=== PATIENT | male | born 1945 | race Two or more races ===

== ENCOUNTER 2016-10-26 12:39 | Inpatient (IN) | payer MEDICARE, MEDICAID ==
--- NOTE | 2016-10-26 13:24 | ED Physician Chart ---
Chief Complaint/HPI - Patient Information Date Seen:: 10/26/16 Time Seen:: 13:22 Chief Complaint:: geripsych intake History of Present Illness:: [place] sent [facility] for [place]. He is planned for geripsy admission. no further hx given to me. pmh does nt mention prior psych hx. hx of asthma, o2 sat 95% on arrival. pt w no new complaints currently Allergies:: Allergies Allergy/AdvReac Type Severity Reaction Status Date / Time No Known Allergies Allergy Verified 10/26/16 13:09 Vitals:: Vital Signs - 8 hr 10/26/16 10/26/16 13:12 13:17 Temp 98.7 F HR 89 RR 19 BP 130/78 130/78 O2 Sat % 95 Historian:: Patient Review of Systems - Review of Systems General/Constitutional: No fever, No chills, No weight loss, No weakness, No diaphoresis, No edema, No loss of appetite Skin: No skin lesions, No rash, No bruising Head: No headache, No light-headedness Eyes: No loss of vision, No pain, No diplopia ENT: No earache, No nasal drainage, No sore throat, No tinnitus Neck: No neck pain, No swelling, No thyromegaly, No stiffness, No mass noted Cardio Vascular: No chest pain, No palpitations, No PND, No orthopnea, No edema Pulmonary: No SOB, No cough, No sputum, Wheezing GI: No nausea, No vomiting, No diarrhea, No pain, No melena, No hematochezia, No constipation, No hematemesis G/U: No dysuria, No frequency, No hematuria Musculoskeletal: No bone or joint pain, No back pain, No muscle pain Endocrine: No polyuria, No polydipsia Psychiatric: Prior psych history, No depression, No anxiety, No suicidal ideation, Other (agitation, difficult behavior) Hematopoietic: No bruising, No lymphadenopathy Allergic/Immuno: No urticaria, No angioedema Neurological: No syncope, No focal symptoms, No weakness, No paresthesia, No headache, No seizure, No dizziness, No confusion, No vertigo Past Medical History - Past Medical History Past Medical History: Asthma/COPD, Other ([place]) Social History: Care Facility Medication: Reviewed Family Medical History - Family Member Nephew History Unknown: Yes Ethnicity: Physical Exam - Physical Examination General/Constitutional: Awake, Well-developed, well-nourished, Alert, No distress, GCS 15, Non-toxic appearing, Ambulatory Other Gen/Cons comments:: mod obese male, talkative, in nad...currently calm. denies pain. mild TIMBI-SHA SHOSHONE. male pattern balding Head: Atraumatic Eyes: Lids, conjuctiva normal, PERRL, EOMI Skin: Nl inspection, No rash, No skin lesions, No ecchymosis, Well hydrated, No lymphadenopathy ENMT: External ears, nose nl, Nasal exam nl, Lips, teeth, gums nl Neck: Nontender, Full ROM w/o pain, No JVD, No nuchal rigidity, No bruit, No mass, No stridor Respiratory: Nl effort/Exclusion, Clear to Auscultation Other Respiratory comments:: pos mild diffuse wheeze. no sob. no lower extr edema Cardio Vascular: RRR, No murmur, gallop, rubs, NL S1 S2 GI: No tenderness/rebounding/guarding, No organomegaly, No hernia, Normal BS's, Nondistended, No mass/bruits, No McBurney tenderness : No CVA tenderness Extremities: No tenderness or effusion, Full ROM, normal strength in all extremities, No edema, Normal digits & nails Neuro/Psych: Alert/oriented, DTR's symmetric, Normal sensory exam, Normal motor strength, Judgement/insight normal, Mood normal, Normal gait, No focal deficits Misc: normal gait, Normal back, No paraspinal tenderness Labs/Radiology/EKG Results - Lab Results Results: Laboratory Tests 10/26/16 10/26/16 10/26/16 13:30 13:30 13:30 WBC 6.0 RBC 5.31 Hgb 10.1 L Hct 32.3 L MCV 60.7 L MCH 18.9 L MCHC Differential 31.2 RDW 21.5 H Plt Count 206 MPV 8.0 Band Neutrophils % 1 Neutrophils (Manual) 70 Lymphocytes 19 L Monocytes 6 Eosinophils 4 Platelet Estimate ADEQUATE Platelet Morphology NORMAL Anisocytosis 1+ Microcytosis 3+ RBC Morph Micro Appear ABNORMAL Sodium 135 L Potassium 4.2 Chloride 103 Carbon Dioxide 28.5 Anion Gap 7.7 BUN 15 Creatinine 0.7 Est GFR ( Amer) TNP Est GFR (Non-Af Amer) TNP BUN/Creatinine Ratio 21.4 Glucose 107 H Calcium 9.5 Total Bilirubin 0.4 AST 17 ALT 13 Alkaline Phosphatase 64 Total Protein 7.6 Albumin 4.0 L Globulin 3.6 Albumin/Globulin Ratio 1.1 Triglycerides 123 Cholesterol 100 LDL Cholesterol Direct 41 L HDL Cholesterol 33 Lipase 47 TSH Urine Source Urine Color Urine Clarity Urine pH Ur Specific [place] Urine Protein Urine Glucose (UA) Urine Ketones Urine Blood Urine Nitrate Urine Bilirubin Urine Urobilinogen Ur Leukocyte Esterase Urine RBC Urine WBC Ur Epithelial Cells Urine Bacteria 10/26/16 10/26/16 13:30 13:40 WBC RBC Hgb Hct MCV MCH MCHC Differential RDW Plt Count MPV Band Neutrophils % Neutrophils (Manual) Lymphocytes Monocytes Eosinophils Platelet Estimate Platelet Morphology Anisocytosis Microcytosis RBC Morph Micro Appear Sodium Potassium Chloride Carbon Dioxide Anion Gap BUN Creatinine Est GFR ( Amer) Est GFR (Non-Af Amer) BUN/Creatinine Ratio Glucose Calcium Total Bilirubin AST ALT Alkaline Phosphatase Total Protein Albumin Globulin Albumin/Globulin Ratio Triglycerides Cholesterol LDL Cholesterol Direct HDL Cholesterol Lipase TSH 0.79 Urine Source CLEAN C Urine Color YELLOW Urine Clarity SL. CLOUDY Urine pH 6.0 Ur Specific [place] Urine Protein TRACE Urine Glucose (UA) NEGATIVE Urine Ketones NEGATIVE Urine Blood NEGATIVE Urine Nitrate NEGATIVE Urine Bilirubin NEGATIVE Urine Urobilinogen 1.0 Ur Leukocyte Esterase NEGATIVE Urine RBC NONE SEEN Urine WBC 0-2 Ur Epithelial Cells OCCASIONAL Urine Bacteria NONE SEEN - Radiology Results Results: ct abd/p nad - EKG Interpretations EKG Time:: 13:25 Rhythm: nsr Taylor: 39 Rate: 88 Comments:: nsr wnl. ED Septic Shock - . Is Septic Shock (SBP<90, OR Lactate>4 mmol\L) present?: No - <6hrs of presentation: Vital Signs: Vital Signs - 8 hr 10/26/16 10/26/16 13:12 13:17 Temp 98.7 F HR 89 RR 19 BP 130/78 130/78 O2 Sat % 95 Reassessment (Disposition) - Reassessment Reassessment Condition:: Improved - Diagnosis Diagnosis:: agitation / difficult behavior asthma - Patient Disposition Condition at Disposition:: Improved
[2016-10-26] MEDS ORDERED: Albuterol/Ipratropium Neb 3 ML AERS HHN ONE ×2 (13:26→13:40)
[2016-10-26 13:42] LABS: HEMATOCRIT 32.3 % (39.0-49.0); HEMOGLOBIN 10.1 gm/dL (12.6-17.4); MEAN CORPUSCULAR HEMOGLOBIN 18.9 pg (27.0-31.0); MEAN CORPUSCULAR HGB CONC 31.2 pg (28.0-36.0); PLATELET COUNT 206 Th/cmm (150-400); RED BLOOD COUNT 5.31 Mil/cmm (3.80-5.80); RED CELL DISTRIBUTION WIDTH 21.5 % (11.5-20.0)
[2016-10-26 13:43] LABS: MEAN CELL VOLUME 60.7 fl (80-99)
[2016-10-26 13:53] LABS: CHOLESTEROL 100 mg/dL (<200); TRIGLYCERIDES 123 mg/dL (<150)
[2016-10-26 13:54] LABS: BAND NEUTROPHILE 1 % (0-10); EOSINOPHIL 4 % (0-5); NEUTROPHILS 70 % (40-80); TOTAL CELLS COUNTED 100
[2016-10-26 13:55] LABS: ANISOCYTOSIS 1+; MICROCYTOSIS 3+; PLATELET ESTIMATE ADEQUATE (NORMAL); PLATELET MORPHOLOGY NORMAL (NORMAL)
[2016-10-26 13:58] LABS: URINE BILIRUBIN NEGATIVE (NEGATIVE); URINE BLOOD NEGATIVE (NEGATIVE); URINE COLOR YELLOW; URINE GLUCOSE (UA) NEGATIVE (NEGATIVE); URINE KETONE NEGATIVE (NEGATIVE); URINE PROTEIN TRACE mg/dL (NEGATIVE)
[2016-10-26 14:01] LABS: URINE BACTERIA NONE SEEN /hpf (NONE SEEN); URINE EPITHELIAL CELLS OCCASIONAL /lpf (FEW); URINE RBC NONE SEEN /hpf (0-5); URINE WBC 0-2 /hpf (0-5)
[2016-10-26 14:08] LABS: ALB/GLOB RATIO 1.1 (1.0-1.8); ALKALINE PHOSPHATASE 64 U/L (34-104); ANION GAP 7.7 (7.0-16.0); BILIRUBIN,TOTAL 0.4 mg/dL (0.3-1.0); BUN - UREA NITROGEN 15 mg/dL (7-25); BUN/CREATININE RATIO 21.4; CALCIUM SERUM 9.5 mg/dL (8.6-10.3); CARBON DIOXIDE 28.5 mEq/L (21.0-31.0); CHLORIDE 103 mEq/L (98-107); CREATININE - SERUM 0.7 mg/dL (0.7-1.3); GLUCOSE 107 mg/dL (70-105); LIPASE 47 U/L (11-82); POTASSIUM SERUM 4.2 mEq/L (3.5-5.1); SGOT 17 U/L (13-39); SGPT/ALT 13 U/L (7-52); SODIUM SERUM 135 mEq/L (136-145)
--- NOTE | 2016-10-26 15:48 | Diagnostic Imaging Report ---
CHEST X-RAY: AP view INDICATION: Wheezing COMPARISON: None FINDINGS: Chronic lung changes are seen with no focal consolidation or effusions. Heart size is normal. Degenerative changes of the spine and shoulders are noted. IMPRESSION: Chronic lung changes with no focal consolidation identified.
[2016-10-26 17:46] VITALS: BP 99/58
[2016-10-26] MEDS ORDERED: RISPERIDONE 0.5 MG PO SCH (21:00)
--- NOTE | 2016-10-26 22:59 | Psychosocial Evaluation ---
IDENTIFYING DATA: The patient is a 71-year-old male, resident of [facility] in [place]. Information obtained by directly interviewing the patient as well as reviewing the admission papers. JUSTIFICATION FOR HOSPITALIZATION: The patient is admitted here on a voluntary basis in view of his acute agitation and paranoia behavior. CHIEF COMPLAINT: "I do not know." HISTORY OF PRESENT ILLNESS: This is a first psychiatric hospitalization to [facility] for this patient who is reported to have been out of control and getting easily irritable and agitated. The patient could not be continued at a lower level of care. The patient's sleep and appetite prior to the hospitalization are reported to be poor. The patient has been referred over here for further stabilization. Chart is reviewed. The patient is interviewed. During the interview, the patient has been noted to be angry, irritable, and upset, stating that there is no reason for him to be in here. The patient has been in his bed and he is not able to cooperate. Review of the chart indicated that prior to the hospitalization, the patient has been treated with Risperdal 0.5 mg in the morning and 2 mg at bedtime. The patient also has been getting the Cymbalta 30 mg in the morning and Namenda. The patient with these medications has been having still difficult time to contain his aggressive behavior. PAST PSYCHIATRIC HISTORY: Details are not known. MEDICAL HISTORY AND PHYSICAL EXAMINATION: Requested, done by Dr. Gonzalez. SUBSTANCE ABUSE HISTORY: None. PHYSICAL OR SEXUAL ABUSE HISTORY: None. STRENGTH AND ASSETS: The patient is motivated. MENTAL STATUS EXAMINATION: The patient is a 71-year-old looking his stated age, superficially cooperative. Eye contact is poor. Mood is noted to be irritable. Affect is constricted. Insight and judgment are noted to be impaired. Impulse control is noted to be poor. Coping skills are also noted to be poor. The patient has been having difficult time to cope with the stress at this time. The patient is reported to be very aggressive, screaming, and yelling and the patient could not be redirected. The patient has paranoia, but denies any command hallucinations at this time. Insight and judgment are noted to be very much impaired. However, the patient is noted to be alert and oriented to time and place, but the patient has short-term memory deficits with long-term memory seems to be fair at this time. The patient's behavior is likely danger to others. The patient is not suicidal. DIAGNOSTIC IMPRESSION: AXIS I: Psychotic disorder, not otherwise specified. AXIS II: None. AXIS III: As per Dr. Gonzalez. IMMEDIATE TREATMENT PLAN: The patient is going to be continued on the Risperdal. The patient is going to be considered for Depakote. ESTIMATED LENGTH OF STAY: 3 to 5 days. DISCHARGE CRITERIA: When he is no longer a threat to self or others and be able to cope up with the stress. [facility]# [id number]
--- NOTE | 2016-10-27 00:47 | Admit Criteria Form ---
Admit Criteria Forms - Admit Criteria Diagnosis: PSYCHIATRIC DISORDERS Clinical Indications for Inpatient Care (Place 'X' for any and all applicable criteria): Ongoing inpatient care may be needed for ANY ONE of the following(1)(2)(3)(4)(6) (7)(8): [ ]I. Danger to self or others not manageable at lower level of care. [ ]II. Grave disability (eg, inability to perform self care necessary at lower level of care) [X]III. Agitation or inappropriate behavior interfering with care for primary condition (eg, attempting to discontinue lines or drains prematurely, unable to cooperate with respiratory care) [ ]IV. Severe disability or disorder indicated by ALL of the following: [ ]a) Severe behavioral health disorder-related symptoms or condition indicated by ANY ONE of the following: [ ]i) Severe problem with cognition, memory, judgment, or impulse control [ ]ii) Severe clinical manifestations (eg, hallucinations, delusions, other acute psychotic symptoms, ayaka, extreme agitation or anxiety) [ ]b) Patient management at lower level of care is not feasible until acute intervention or modification is initiated. Extended stay beyond goal length of stay for the primary condition may be indicated when ANY ONE of the following is present: (1)(2)(3)(4): [ ]a) Patient is a danger to self or others and not manageable at lower level of care. [ ]b) Behavior crisis management, including physical or chemical restraints, is required and is not available at a lower level of care. [ ]c) Behavioral symptoms (e.g., agitation, somnolence, inappropriate behavior) are present, and are not manageable at a lower level of care. [ ]d) Patient cannot understand follow-up treatment and crisis plan. [ ]e) Provider and supports are not sufficiently available at lower level of care. [ ]f) Patient cannot participate (e.g., verify absence of plan for harm) and is in needed of monitoring. The original [facility] content created by [email or web address] [email or web address] has been revised. The portions of the content which have been revised are identified through the use of italic text or in bold, and [email or web address] [email or web address] has neither reviewed nor approved the modified material. All other unmodified content is copyright [facility] [email or web address]. Please see references footnoted in the original [facility] edition 2016 Admit Criteria Met?: Yes
[2016-10-27] MEDS: Pantoprazole 40 mg EC Tab PO SCH (06:57)
[2016-10-27] MEDS ORDERED: RISPERIDONE 2 MG PO SCH (09:00)
[2016-10-27] MEDS ORDERED: BECLOMETHASONE DIPROPIONATE 0.08 MG IH SCH (09:00)
[2016-10-27] MEDS: Albuterol/Ipratropium Neb 3 ML AERS HHN PRN ×2 (11:17→21:45)
[2016-10-27 16:07] LABS: HEP B CORE IGM Negative (Negative); HEP C ANTIBODY <0.1 s/co ratio (0.0-0.9)
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
--- NOTE | 2016-10-28 00:34 | Consultation ---
HISTORY OF PRESENT ILLNESS: The patient is a 71-year-old male being seen at the [facility]. PAST MEDICAL HISTORY: Significant for COPD, coronary artery disease, arthritis, osteoporosis and peptic ulcer disease. SOCIAL HISTORY: Prior history of smoking. No street drug or alcohol abuse. FAMILY HISTORY: Not available. REVIEW OF SYSTEMS: The patient has chronic cough, occasional wheezing. No chest pain, no nausea, no vomiting. Gait is unstable. PHYSICAL EXAMINATION: GENERAL: An average male, in no obvious respiratory distress. VITAL SIGNS: Include a blood pressure of 110/70, heart rate 80 and respiration rate of 18. SKIN: Shows no obvious cellulitis. HEENT: Normal conjunctivae. NECK: Supple. LUNGS: Show bilateral rhonchi as well as crepitations. No bronchial breathing. CARDIOVASCULAR: Heart ____ present. ABDOMEN: Soft, minimal epigastric tenderness. Bowel sounds are good. EXTREMITIES: Show arthritis. NEUROLOGIC: The patient has no focal motor deficit. LABORATORY DATA: Include white count 6, hemoglobin of 10.1, hematocrit 32.3 and platelet count of 206. Sodium 135, potassium 4.2, chloride 103, bicarb 28.5, BUN 15, creatinine 0.7 and glucose of 107. IMAGING STUDIES: Chest x-ray done in the ER shows COPD. MEDICAL DIAGNOSES: Include COPD, coronary artery disease, peptic ulcer disease, gastritis, arthritis, osteoporosis and anemia. ASSESSMENT AND PLAN: The patient is on bronchodilator treatment, Protonix, Tylenol, Singulair and rest of medicine as per psychiatrist. JOB# [id number]
[2016-10-28] MEDS: Albuterol/Ipratropium Neb 3 ML AERS HHN PRN ×5 (05:50→22:40)
[2016-10-28] MEDS: Pantoprazole 40 mg EC Tab PO SCH (06:34)
--- NOTE | 2016-10-29 00:15 | Progress Notes ---
PSYCHIATRIC PROGRESS NOTE TIME PATIENT SEEN: 5:15 p.m. SUBJECTIVE: Staff was spoken to. The patient is interviewed. Mood is noted to be irritable. Affect is constricted. Coping skills are noted to be poor. Sleep and appetite are also noted to be very poor. The patient is getting easily irritable. The patient has no insight into his illness. The patient is currently on Risperdal and Depakote and has been able to tolerate the medications. ASSESSMENT: The patient is still paranoid and agitated. PLAN: To continue the patient with the current medications and follow up. JOB# [id number]
[2016-10-29] MEDS: Pantoprazole 40 mg EC Tab PO SCH (06:36)
[2016-10-29] MEDS: Budesonide 0.5 Mg/2 mL Ud HHN SCH (06:48)
[2016-10-29] MEDS: Albuterol/Ipratropium Neb 3 ML AERS HHN SCH ×4 (06:48→21:54)
--- NOTE | 2016-10-29 21:52 | Progress Notes ---
PSYCHIATRIC PROGRESS NOTE TIME PATIENT SEEN: 10:30 a.m. SUBJECTIVE: Staff was spoken to. The patient is interviewed. Mood is noted to be anxious and depressed. Affect is constricted. The patient has paranoid delusions, but denies any command hallucinations. The patient is having breathing problems today and he is getting the breathing treatment. Sleep is reported to be poor. Appetite is reported to be fair. ASSESSMENT: The patient is still psychotic. PLAN: To continue the patient with supportive therapy and continue the Risperdal and followup. JOB# [id number]
[2016-10-30] MEDS: Albuterol/Ipratropium Neb 3 ML AERS HHN PRN (05:34)
[2016-10-30] MEDS: Pantoprazole 40 mg EC Tab PO SCH (06:35)
[2016-10-30] MEDS: Albuterol/Ipratropium Neb 3 ML AERS HHN SCH ×4 (07:12→20:57)
[2016-10-30] MEDS: Budesonide 0.5 Mg/2 mL Ud HHN SCH ×2 (07:12→20:57)
--- NOTE | 2016-10-30 20:24 | Progress Notes ---
PSYCHIATRIC PROGRESS NOTE TIME PATIENT SEEN: 8:45 a.m. SUBJECTIVE: Staff was spoken to. The patient is interviewed. Mood is noted to be irritable. Affect is constricted. The patient is isolative and withdrawn. Paranoid delusions are noted, but the patient has been getting easily frustrated. Sleep is poor at night time, but the patient is sleeping during the daytime. Appetite is noted to be fair. ASSESSMENT: The patient is still psychotic and getting easily agitated. PLAN: To continue the patient with Risperdal and follow up. JOB# [id number]
[2016-10-31] MEDS: Budesonide 0.5 Mg/2 mL Ud HHN SCH ×2 (06:36→19:50)
[2016-10-31] MEDS: Albuterol/Ipratropium Neb 3 ML AERS HHN SCH ×4 (06:36→19:50)
[2016-10-31] MEDS: Pantoprazole 40 mg EC Tab PO SCH (06:43)
--- NOTE | 2016-11-01 01:00 | Progress Notes ---
THE PATIENT SEEN: 09:15 a.m. SUBJECTIVE: Staff was spoken to. The patient is interviewed. Mood is noted to be irritable. Affect is constricted. The patient has paranoid delusions, but denies any command hallucinations, but the patient is isolative and withdrawn for most of the time. ASSESSMENT: The patient is still psychotic. PLAN: To continue the patient with supportive therapy and followup. [facility]# [id number]
[2016-11-01] MEDS: Albuterol/Ipratropium Neb 3 ML AERS HHN PRN (01:59)
[2016-11-01] MEDS: Pantoprazole 40 mg EC Tab PO SCH (06:42)
[2016-11-01] MEDS: Budesonide 0.5 Mg/2 mL Ud HHN SCH ×2 (07:25→19:26)
[2016-11-01] MEDS: Albuterol/Ipratropium Neb 3 ML AERS HHN SCH ×4 (07:25→19:26)
--- NOTE | 2016-11-01 22:23 | Progress Notes ---
PSYCHIATRIC PROGRESS NOTE TIME PATIENT SEEN: 4:15 p.m. SUBJECTIVE: Staff was spoken to. The patient is interviewed. Mood is noted to be irritable. Affect is constricted. The patient has paranoid delusions, but denies any command hallucinations. The patient is isolated with very little participation in the groups. No side effects to the medications are noted. The patient has been able to tolerate the Risperdal. ASSESSMENT: The patient is still psychotic. PLAN: To continue the patient with the current medications. I encouraged the patient to verbalize the concerns rather than to act out. JOB# [id number]
[2016-11-02] MEDS: Albuterol/Ipratropium Neb 3 ML AERS HHN SCH ×7 (03:59→19:31)
[2016-11-02] MEDS: Pantoprazole 40 mg EC Tab PO SCH (06:46)
[2016-11-02] MEDS: Budesonide 0.5 Mg/2 mL Ud HHN SCH ×2 (07:20→19:32)
--- NOTE | 2016-11-02 23:36 | Progress Notes ---
TIME PATIENT SEEN: 4:45 p.m. SUBJECTIVE: Staff was spoken to. The patient is interviewed. Mood is noted to be less irritable. Affect is appropriate. The patient has paranoid delusions, but denies any command hallucinations. No side effects to the medications are noted. ASSESSMENT: The patient's psychosis is resolving at this time. PLAN: To continue the patient with the supportive therapy. I encouraged the patient to verbalize the concerns rather than to act out. JOB# [id number]
[2016-11-03] MEDS: Albuterol/Ipratropium Neb 3 ML AERS HHN SCH ×5 (04:25→19:06)
[2016-11-03] MEDS: Pantoprazole 40 mg EC Tab PO SCH (06:51)
[2016-11-03] MEDS: Budesonide 0.5 Mg/2 mL Ud HHN SCH ×2 (07:23→19:07)
--- NOTE | 2016-11-04 01:00 | Progress Notes ---
PSYCHIATRIC PROGRESS NOTE TIME PATIENT SEEN: 10:30 a.m. SUBJECTIVE: Staff was spoken to. The patient is interviewed. Mood is noted to be less irritable. Affect is appropriate. Coping skills are noted to be improving. Sleep and appetite are also noted to be improving. The patient is stating that the medication is making him too drowsy and hence it is decided to discontinue the dose of the Paxil in the morning and continue the patient with Risperdal and follow the patient with supportive therapy. The patient's Risperdal dose also is going to be discontinued in the morning. ASSESSMENT: The patient's psychosis is resolving. PLAN: To continue the patient with the supportive therapy and work with the patient case coordinator with regards to disposition. JOB# [id number]
[2016-11-04] MEDS: Albuterol/Ipratropium Neb 3 ML AERS HHN SCH ×5 (02:37→19:18)
[2016-11-04] MEDS: Pantoprazole 40 mg EC Tab PO SCH (06:43)
[2016-11-04] MEDS: Budesonide 0.5 Mg/2 mL Ud HHN SCH ×2 (07:22→19:18)
--- NOTE | 2016-11-05 01:02 | Progress Notes ---
PSYCHIATRIC PROGRESS NOTE TIME PATIENT SEEN: 08:45 a.m. SUBJECTIVE: Staff was spoken to. The patient is interviewed. Mood is noted to be anxious. Affect is appropriate. The patient is denying any auditory hallucinations ____, but no command hallucinations are noted. Insight and judgment are noted to be improving. Impulse control seems to be fair. ASSESSMENT: The patient is stabilizing. PLAN: To discharge the patient today for followup on outpatient basis. JOB# [id number]
--- NOTE | 2016-11-20 19:13 | Discharge Summary ---
IDENTIFYING DATA: The patient is a 71-year-old male, resident on [facility] in [place]. JUSTIFICATION OF HOSPITALIZATION: The patient is admitted on a voluntary basis in view of his acute agitation and paranoid behavior. CHIEF COMPLAINT: I not know. DIAGNOSES AT THE TIME OF ADMISSION: AXIS I: Psychotic disorder, unspecified. AXIS II: None. AXIS III: As per Dr. Gonzalez. HISTORY OF PRESENT ILLNESS AND HOSPITAL COURSE: Please refer to the 10/26/2016, dictation done by me. Physical examination was done by Dr. Gonzalez and is noted to be significant for COPD, coronary artery disease, peptic ulcer disease, arthritis, gastritis and osteoporosis. Lab studies done at the time of the hospitalization have been reviewed by Dr. Gonzalez. The patient has been continued on the duloxetine 30 mg for his depression. Ativan has been given on a p.r.n. basis. The patient has been given the Risperdal 2 mg at bedtime for his psychosis. With these medications, the patient has been observed and was noted to be doing fairly well and hence the patient was finally discharged on 11/04/2016, with recommendation that he is going to be seeking treatment on an outpatient basis. MENTAL STATUS EXAMINATION: At the time of discharge, the patient's mood is noted to be anxious. Affect is appropriate, not suicidal or homicidal. Insight and judgment noted to be improving. Impulse control seems to be fair. The patient has paranoia, but denies any command hallucinations. The patient is not acting out. No side effects to the medications are noted. DIAGNOSES AT THE TIME OF DISCHARGE: AXIS I: Psychotic disorder, unspecified. AXIS II: None. AXIS III: Chronic obstructive pulmonary disease, coronary artery disease and peptic ulcer disease. AFTERCARE PLAN: The patient is discharged to [facility] to be followed at the half-way facility by ____. Diagnosis at the time of discharge noted to be fair with the treatment. JOB# [id number]
== END 2016-11-04 22:52 | DRG 885 ==
LOC: ER 12:39 → GERO 15:40
PROVIDERS: ADMIT Psychiatry & Neurology Psychiatry; ATTEND Psychiatry & Neurology Psychiatry
DX: F29 Unspecified psychosis not due to a substance or known physiological condition (principal); J44.9 Chronic obstructive pulmonary disease, unspecified; D64.9 Anemia, unspecified; J45.909 Unspecified asthma, uncomplicated; I25.10 Atherosclerotic heart disease of native coronary artery without angina pectoris; M19.90 Unspecified osteoarthritis, unspecified site; M81.0 Age-related osteoporosis without current pathological fracture; K27.9 Peptic ulcer, site unspecified, unspecified as acute or chronic, without hemorrhage or perforation; K29.70 Gastritis, unspecified, without bleeding; F22 Delusional disorders
CPT/HCPCS: 36415-UA; 71010-TC; 80053-TC; 80061-TC; 80074-90; 81001-TC; 83690-TC; 84443-TC; 85007-TC; 85027-TC; 86592-TC; 90899; 93005; 94640; 94760; Z7610